=== PATIENT | female | born 1990 | race Caucasian/White ===

== ENCOUNTER 2018-06-04 10:19 | Emergency (ER) | payer OTHER ==
[~2018-06-04] VITALS: Ht 152.4 cm; Wt 52.2 kg
[2018-06-04] MEDS ORDERED: AVPAK AZITHROM250 MG PO (10:45)
[2018-06-04] MEDS ORDERED: PREDNISONE50 MG PO (10:45)
[2018-06-04] MEDS ORDERED: TESSALON PERLE100 MG PO (10:45)
[2018-06-04] MEDS ORDERED: PROVENTIL HFA6.7 GM INH (10:45)
[2018-06-04] MEDS ORDERED: CORTISPORIN SUS10 ML OT (10:47)
== END 2018-06-04 10:50 | disposition home or self-care (01) ==
LOC: ED 10:19
DX: J20.9 Acute bronchitis, unspecified (principal); H60.93 Unspecified otitis externa, bilateral; J45.909 Unspecified asthma, uncomplicated